=== PATIENT | female | born 1940 | race Caucasian/White ===

== ENCOUNTER → 2016-10-08 | Outpatient (CLI) | payer MEDICARE ==
[~2016-10-08] MED LIST: ASPIRIN 81MG TA81 MG PO; ASPIRIN325 M1 PO; ATORVASTATIN CA40 MG PO; BACTRIM DS 8001 TA1 PO; BUPROPION XL300 MG PO; CALTRATE 600 +1 TAB PO; CALTRATE PO; COREG12.5 MG PO; DIGOXIN0.125 MG PO; FLONASE 50 MCG16 GM; IMODIUM 2MG. CAP2 MG PO; LEVOTHYROXINE0.05 MG PO; LINZESS145 MCG PO; LISINOPRIL5 MG PO; LOMOTIL 0.025 M1 TAB PO; LORTAB 5/500 501 TAB PO; MEDROL 4MG. DOSE4 MG PO; MOTRIN 600MG.600 MG PO; NEURONTIN 300M300 MG OR; OXYBUTYNIN10 MG PO; PRILOSEC20 MG PO; PRISTIQ50 MG PO; RESTORIL15 MG PO; SLOW RELEASE I160 MG PO; SULFAMETHOXAZOL1 TA6 PO; WARFARIN 3MG TAB3 MG PO; WARFARIN SODIUM4 MG PO; WARFARIN4 MG PO; ZOFRAN4 MG PO; [UNRECOGNIZED DRUG - OTHER] PO
[2016-10-08 10:04] LABS: HEMOGLOBIN 13.5 g/dL (12.2-16.2); LYMPH # 1.2 K/mm3 (0.7-4.5); LYMPH % 25.6 % (10-50.0)
[2016-10-08 11:21] LABS: BUN 11 mg/dL (7-18); FREE THYROXIN INDEX 5.2 ug/dl (5.93-13.13)
[2016-10-08 11:42] LABS: GFR (ESTIMATED) 98 ML/MIN (59-)
== END ==
LOC: LAB 09:47
PROVIDERS: Internal Medicine Adolescent Medicine
DX: E03.9 Hypothyroidism, unspecified (principal); E78.5 Hyperlipidemia, unspecified

== ENCOUNTER 2016-11-09 15:01 | Outpatient (CLI) | payer MEDICARE | END 2016-11-09 15:45 | LOC: ACC 15:01 | DX: I45.5 Other specified heart block (principal); Z86.73 Personal history of transient ischemic attack (TIA), and cerebral infarction without residual deficits; Z79.01 Long term (current) use of anticoagulants; Z51.81 Encounter for therapeutic drug level monitoring | CPT/HCPCS: G0463 ==

== ENCOUNTER 2017-03-01 12:56 | Outpatient (CLI) | payer MEDICARE ==
[~2017-03-01 12:56] MED LIST changes: +PRILOSEC20 M1 PO; -PRILOSEC20 MG PO
== END 2017-03-01 15:39 ==
LOC: ACC 12:56
DX: Z86.73 Personal history of transient ischemic attack (TIA), and cerebral infarction without residual deficits (principal); Z79.01 Long term (current) use of anticoagulants; Z51.81 Encounter for therapeutic drug level monitoring
CPT/HCPCS: G0463

== ENCOUNTER 2017-05-16 11:37 | Outpatient (CLI) | payer MEDICARE | END 2017-05-16 15:54 | LOC: ACC 11:37 | DX: Z86.73 Personal history of transient ischemic attack (TIA), and cerebral infarction without residual deficits (principal); Z79.01 Long term (current) use of anticoagulants; Z51.81 Encounter for therapeutic drug level monitoring | CPT/HCPCS: G0463 ==

== ENCOUNTER → 2017-05-24 | Outpatient (CLI) | payer MEDICARE ==
[2017-05-24 10:13] LABS: HEMOGLOBIN 14.4 g/dL (12.2-16.2); LYMPH # 1.2 K/mm3 (0.7-4.5); LYMPH % 29.5 % (10-50.0)
[2017-05-24 15:11] LABS: BUN 8 mg/dL (7-18)
[2017-05-24 15:15] LABS: GFR (ESTIMATED) 70 ML/MIN (59-)
== END ==
LOC: LAB 08:45
PROVIDERS: Internal Medicine Adolescent Medicine
DX: I48.0 Paroxysmal atrial fibrillation (principal); E03.9 Hypothyroidism, unspecified; E78.5 Hyperlipidemia, unspecified

== ENCOUNTER 2017-05-30 10:57 | Outpatient (CLI) | payer MEDICARE | END 2017-05-30 15:45 | LOC: ACC 10:57 | DX: Z86.73 Personal history of transient ischemic attack (TIA), and cerebral infarction without residual deficits (principal); Z79.01 Long term (current) use of anticoagulants; Z51.81 Encounter for therapeutic drug level monitoring | CPT/HCPCS: G0463 ==

== ENCOUNTER 2017-07-17 13:17 | Outpatient (CLI) | payer MEDICARE | END 2017-07-17 17:05 | LOC: ACC 13:17 | DX: Z86.73 Personal history of transient ischemic attack (TIA), and cerebral infarction without residual deficits (principal); Z79.01 Long term (current) use of anticoagulants; Z51.81 Encounter for therapeutic drug level monitoring | CPT/HCPCS: G0463 ==